=== PATIENT | female | born 2000 | race Caucasian/White ===

== ENCOUNTER → 2019-10-15 18:14 | Observation (INO) | END | disposition home or self-care (01) | LOC: 1NENULAB | PROVIDERS: ADMIT Student in an Organized Health Care Education/Training Program; ATTEND Student in an Organized Health Care Education/Training Program ==

== ENCOUNTER → 2019-10-23 00:53 | Observation (INO) ==
[2019-10-23 00:02] LABS: Bilirubin,Urine Negative (Negative); Blood,Urine Negative (Negative); Clarity,Urine Clear (Clear); Color,Urine Colorless (Yellow); Glucose,Urine (UA) Normal (Normal); Ketones,Urine Negative (Negative); Leukocyte Esterase,Urine Negative (Negative); Nitrite,Urine Negative (Negative); Protein,Urine Negative (Neg-Trace); Specific Gravity,Urine 1.006 (1.010-1.025); Urobilinogen,Urine Normal (Normal)
== END | disposition home or self-care (01) ==
LOC: 1NENULAB
PROVIDERS: ADMIT Obstetrics & Gynecology; ATTEND Obstetrics & Gynecology

== ENCOUNTER 2019-11-09 18:00 | Inpatient (IN) ==
[2019-11-09] MEDS ORDERED: miSOPROStoL 25 MCG TABLET VG PRN ×2 (18:19→18:22)
[2019-11-09] MEDS ORDERED: Lidocaine 1% 20 ML MDV INFILT PRN (18:23)
[2019-11-09] MEDS ORDERED: *HR* FentaNYL (PF) 100 MCG/2 ML VIAL IVP PRN (18:23)
[2019-11-09] MEDS ORDERED: Metoclopramide 10 MG/2 ML VIAL IVP PRN (18:23)
[2019-11-09] MEDS ORDERED: Naloxone 0.4 MG/ML INJ IVP PRN (18:23)
[2019-11-09] MEDS ORDERED: Oxytocin 20 units/ LR 1000 mL 20 UNIT/1,000 ML BAG IVC SCH ×2 (18:30)
[2019-11-09] MEDS ORDERED: Ringers Solution, Lactated 1,000 ML IVC SCH (18:30)
[2019-11-09 19:15] LABS: Basophils % 0.4 %; Eosinophils # 0.1 K/mcL (0.0-0.6); Eosinophils % 0.9 %; Hematocrit 33.3 % (35.3-44.9); Hemoglobin 10.8 g/dL (11.5-15.4); Immature Granulocytes % 0.6 % (0-4); Lymphocytes # 2.2 K/mcL (0.6-4.6); Lymphocytes % 26.8 %; Mean Corpuscular HGB Conc 32.4 g/dL (31.6-35.5); Mean Corpuscular Hemoglobin 26.9 pg (28.0-33.3); Mean Platelet Volume 12.6 fL (9.4-12.4); Monocytes # 0.6 K/mcL (0.0-1.3); Monocytes % 6.8 %; Neutrophils # 5.3 K/mcL (1.6-8.9); Platelet Count 163 K/mcL (140-400); Red Blood Count 4.01 M/mcL (3.82-4.97); Red Cell Distribution Width 14.6 % (11.5-14.5); Segmented Neutrophils % 64.5 %; White Blood Count 8.1 K/mcL (4.3-11.1)
[2019-11-09 19:21] LABS: Amphetamine Screen,Urine Negative ng/mL (Cutoff=1000); Barbiturate Screen,Urine Negative ng/mL (Cutoff=200); Benzodiazepines Screen,Urine Negative ng/mL (Cutoff=200); Cannabinoid Screen,Urine Negative ng/mL (Cutoff = 50); Cocaine Screen,Urine Negative ng/mL (Cutoff= 300); Opiate Screen,Urine Negative ng/mL (Cutoff=300); Phencyclidine Screen,Urine Negative ng/mL (Cutoff=25)
[2019-11-09] MEDS ORDERED: *HR* FentaNYL (PF) 100 MCG/2 ML VIAL EP ONE (20:38)
[2019-11-09] MEDS ORDERED: Bupivacaine-MPF 0.25% 10 ML VIAL EP ONE (20:38)
[2019-11-09] MEDS ORDERED: EPHEDrine 50 MG/ML VIAL IVP PRN (20:38)
[2019-11-09] MEDS ORDERED: Bupivacaine-MPF 0.25% 10 ML VIAL ONE (20:44)
[2019-11-09] MEDS ORDERED: *HR* FentaNYL (PF) 100 MCG/2 ML VIAL ONE (20:44)
[2019-11-10] MEDS ORDERED: Oxytocin 20 units/ LR 1000 mL 20 UNIT/1,000 ML BAG IVC ONE (00:47)
[2019-11-10] MEDS ORDERED: Oxytocin 20 units/ LR 1000 mL 20 UNIT/1,000 ML BAG IVC SCH (01:00)
[2019-11-10] MEDS: Famotidine 20 MG/2 ML VIAL IVP PRN (01:11)
[2019-11-10 06:44] LABS: Alanine Aminotransferase 7 Units/L (7-52); Aspartate Amino Transferase 12 Units/L (13-39); BUN/Creatinine Ratio 13 (6-26); Blood Urea Nitrogen 6 mg/dL (6-20); Lactate Dehydrogenase 123 Units/L (140-271); eGFR For African Americans > 60; eGFR For Non-African Americans > 60
[2019-11-10 07:28] LABS: Creatinine,Urine 71 mg/dL; Protein/Creatinine Ratio,Urine 0.27 mg/mg (0.00-0.20)
[2019-11-10] MEDS ORDERED: *HR* Phenylephrine 10 MG/ML VIAL ONE (08:15)
[2019-11-10] MEDS: Epidural Premix (fent/bupiv) 110 ML EP SCH ×2 (13:48→20:21)
[2019-11-10] MEDS ORDERED: 0.9 % Sodium Chloride 1,000 ML ONE (21:46)
[2019-11-11] MEDS ORDERED: Ropivacaine/PF 0.2% 20 ML VIAL ONE (00:59)
[2019-11-11] MEDS ORDERED: *HR* Ropivacaine/PF 0.5% 20 ML VIAL ONE (00:59)
[2019-11-11] MEDS ORDERED: SODIUM CHLORIDE 0.9% IVPB ONE (01:49)
[2019-11-11] MEDS ORDERED: GENTAMICIN IVPB ONE (01:49)
[2019-11-11] MEDS ORDERED: 0.9 % Sodium Chloride 1,000 ML ONE (02:09)
[2019-11-11] MEDS ORDERED: 0.9 % Sodium Chloride 1,000 ML IVC SCH (02:45)
[2019-11-11] MEDS ORDERED: Oxytocin 20 UNIT in 0.9 % Sodium Chloride 1,000 ML IVC SCH (02:45)
[2019-11-11] MEDS ORDERED: Ampicillin 2 GM in 0.9 % Sodium Chloride Mini Bag 100 ML IVPB SCH ×2 (03:00→12:00)
[2019-11-11] MEDS ORDERED: Gentamicin 80 MG in 0.9 % Sodium Chloride 100 ML IVPB SCH ×2 (03:00→19:00)
[2019-11-11] MEDS: Epidural Premix (fent/bupiv) 110 ML EP SCH (04:41)
[2019-11-11] MEDS ORDERED: Famotidine 20 MG/2 ML VIAL ONE (07:01)
[2019-11-11] MEDS: Famotidine 20 MG/2 ML VIAL IVP PRN (07:05)
[2019-11-11] MEDS ORDERED: CeFAZolin 2,000 MG/50 ML BAG IVPB ONE (07:08)
[2019-11-11] MEDS ORDERED: Azithromycin 500 MG in 0.9 % Sodium Chloride 250 ML IVPB ONE (07:10)
[2019-11-11] MEDS ORDERED: Famotidine 20 MG/2 ML VIAL IVP PRN (07:10)
[2019-11-11] MEDS ORDERED: Naloxone 0.4 MG/ML INJ IVP PRN (07:10)
[2019-11-11] MEDS ORDERED: Metoclopramide 10 MG/2 ML VIAL IVP PRN ×2 (07:10→11:13)
[2019-11-11] MEDS ORDERED: *HR* Morphine Sulfate/PF 10 MG/10 ML AMPUL ONE (07:12)
[2019-11-11] MEDS ORDERED: *HR* Oxytocin 10 UNIT/ML VIAL IM ONE ×3 (07:12→08:30)
[2019-11-11] MEDS ORDERED: Chloroprocaine/PF 20 ML VIAL INFILT ONE ×2 (07:12→08:03)
[2019-11-11] MEDS ORDERED: *HR* Propofol 200 MG/20 ML VIAL IVP ONE (07:34)
[2019-11-11] MEDS ORDERED: *HR* FentaNYL (PF) 250 MCG/5 ML VIAL ONE (07:57)
[2019-11-11] MEDS ORDERED: Acetaminophen IV 1,000 MG/100 ML INFUS..BTL IVPB ONE (08:13)
[2019-11-11] MEDS ORDERED: Ondansetron 4 MG/2 ML VIAL IVP PRN ×2 (08:13→11:13)
[2019-11-11] MEDS ORDERED: *HR* HYDROmorphone PF 0.5 MG/0.5 ML SYRINGE IVP PRN (08:13)
[2019-11-11] MEDS ORDERED: Dexamethasone 4 MG/ML VIAL ONE (08:16)
[2019-11-11] MEDS ORDERED: Ondansetron 4 MG/2 ML VIAL ONE (08:16)
[2019-11-11] MEDS ORDERED: Ringers Solution, Lactated 1,000 ML ONE (08:30)
[2019-11-11] MEDS ORDERED: Ketorolac 30 MG/ML VIAL ONE (08:36)
[2019-11-11] MEDS ORDERED: Sennosides 8.6 MG TABLET PO PRN (11:13)
[2019-11-11] MEDS ORDERED: Rho Immune Globulin 1,500 UNIT SYRINGE IM ONE (11:13)
[2019-11-11] MEDS ORDERED: Measles/Mumps/Rubella Vacc 0.5 ML VIAL SQ ONE (11:13)
[2019-11-11] MEDS ORDERED: *HR* OxyCODONE/APAP 5/325 TABLET PO PRN (11:13)
[2019-11-11] MEDS: Acetaminophen 325 MG TABLET PO PRN (12:37)
[2019-11-11] MEDS: Ampicillin 2 GM in 0.9 % Sodium Chloride Mini Bag 100 ML IVPB SCH ×2 (12:45→18:18)
[2019-11-11] MEDS: Simethicone 80 MG TAB.CHEW PO SCH ×3 (12:58→20:41)
[2019-11-11] MEDS: Prenatal Vit/FA 1 EACH TABLET PO SCH (12:59)
[2019-11-11] MEDS: Gentamicin 280 MG in 0.9 % Sodium Chloride 100 ML IVPB SCH (13:40)
[2019-11-11] MEDS: Ketorolac 30 MG/ML VIAL IVP SCH ×2 (15:09→20:41)
[2019-11-11] MEDS: Oxytocin 20 units/ LR 1000 mL 20 UNIT/1,000 ML BAG IVC SCH (22:15)
[2019-11-12] MEDS: Ampicillin 2 GM in 0.9 % Sodium Chloride Mini Bag 100 ML IVPB SCH ×3 (00:31→12:10)
[2019-11-12] MEDS: Ketorolac 30 MG/ML VIAL IVP SCH ×2 (02:29→08:31)
[2019-11-12 04:20] LABS: Basophils % 0.2 %; Eosinophils % 0.3 %; Hematocrit 28.4 % (35.3-44.9); Immature Granulocytes % 0.7 % (0-4); Lymphocytes # 1.8 K/mcL (0.6-4.6); Lymphocytes % 16.7 %; Mean Corpuscular HGB Conc 30.6 g/dL (31.6-35.5); Mean Corpuscular Hemoglobin 26.5 pg (28.0-33.3); Mean Corpuscular Volume 86.6 fL (83.0-100.0); Mean Platelet Volume 12.5 fL (9.4-12.4); Monocytes # 0.6 K/mcL (0.0-1.3); Monocytes % 5.2 %; Neutrophils # 8.3 K/mcL (1.6-8.9); Platelet Count 136 K/mcL (140-400); Red Blood Count 3.28 M/mcL (3.82-4.97); Red Cell Distribution Width 15.3 % (11.5-14.5); Segmented Neutrophils % 76.9 %; White Blood Count 10.8 K/mcL (4.3-11.1)
[2019-11-12 04:25] LABS: Hemoglobin 8.7 g/dL (11.5-15.4)
[2019-11-12] MEDS: Oxytocin 20 units/ LR 1000 mL 20 UNIT/1,000 ML BAG IVC SCH (06:22)
[2019-11-12] MEDS: Prenatal Vit/FA 1 EACH TABLET PO SCH (08:32)
[2019-11-12] MEDS: Simethicone 80 MG TAB.CHEW PO SCH ×3 (08:32→20:25)
[2019-11-12] MEDS: Acetaminophen 325 MG TABLET PO PRN ×2 (10:02→17:05)
[2019-11-12] MEDS: Gentamicin 280 MG in 0.9 % Sodium Chloride 100 ML IVPB SCH (12:58)
[2019-11-12] MEDS: cephALEXin 500 MG CAPSULE PO SCH ×2 (17:04→20:25)
[2019-11-12] MEDS: metroNIDAZOLE 500 MG TABLET PO SCH ×2 (17:04→20:25)
[2019-11-13] MEDS: Acetaminophen 325 MG TABLET PO PRN ×2 (00:26→07:55)
[2019-11-13] MEDS: Simethicone 80 MG TAB.CHEW PO SCH (07:54)
[2019-11-13] MEDS: Prenatal Vit/FA 1 EACH TABLET PO SCH (07:54)
[2019-11-13] MEDS: cephALEXin 500 MG CAPSULE PO SCH (07:55)
[2019-11-13 08:01] VITALS: BP 129/91
[2019-11-13] MEDS: metroNIDAZOLE 500 MG TABLET PO SCH (09:09)
== END 2019-11-13 13:50 | disposition home or self-care (01) | DRG 540 ==
LOC: 1NENULAB 18:01 → 1NENUOBS 11-11 11:13
PROVIDERS: ADMIT Student in an Organized Health Care Education/Training Program; ATTEND Student in an Organized Health Care Education/Training Program

== ENCOUNTER → 2021-09-03 21:48 | Observation (INO) ==
[2021-09-03 21:15] LABS: Bilirubin,Urine Negative (Negative); Blood,Urine Negative (Negative); Clarity,Urine Clear (Clear); Color,Urine Light-Yellow (Yellow); Glucose,Urine (UA) Normal (Normal); Ketones,Urine Negative (Negative); Leukocyte Esterase,Urine Negative (Negative); Nitrite,Urine Negative (Negative); Protein,Urine Negative (Neg-Trace); Specific Gravity,Urine 1.017 (1.010-1.025); Urobilinogen,Urine Normal (Normal)
== END | disposition home or self-care (01) ==
LOC: 1NENULAB
PROVIDERS: ADMIT Advanced Practice Midwife; ATTEND Advanced Practice Midwife

== ENCOUNTER → 2021-09-21 15:55 | Observation (INO) ==
[2021-09-21 15:43] LABS: Amorphous Sediment,Urine Few per hpf (None-Few); Bacteria,Urine Few per hpf (None-Few); Bilirubin,Urine Negative (Negative); Blood,Urine Negative (Negative); Clarity,Urine Turbid (Clear); Color,Urine Light-Yellow (Yellow); Glucose,Urine (UA) Normal (Normal); Ketones,Urine Negative (Negative); Leukocyte Esterase,Urine Negative (Negative); Mucus,Urine Few per lpf (None-Few); Nitrite,Urine Negative (Negative); Protein,Urine Trace mg/dL (Neg-Trace); RBC,Urine 0-3 per hpf (0-3); Specific Gravity,Urine 1.014 (1.010-1.025); Squamous Epithelial Cell,Urine Few per hpf (None-Few); Urobilinogen,Urine Normal (Normal); WBC,Urine 0-3 per hpf (0-3)
== END | disposition home or self-care (01) ==
LOC: 1NENULAB
PROVIDERS: ADMIT Registered Nurse; ATTEND Registered Nurse

== ENCOUNTER → 2021-11-04 22:10 | Observation (INO) ==
[~2021-11-04 22:10] MED LIST: Ringers Solution, Lactated 1,000 ML IVC ONE
== END | disposition home or self-care (01) ==
LOC: 1NENULAB
PROVIDERS: ADMIT Student in an Organized Health Care Education/Training Program; ATTEND Student in an Organized Health Care Education/Training Program

== ENCOUNTER 2021-11-23 03:22 | Inpatient (IN) ==
[2021-11-23] MEDS ORDERED: *HR* FentaNYL (PF) 100 MCG/2 ML VIAL IVP PRN (04:18)
[2021-11-23] MEDS ORDERED: Famotidine 20 MG/2 ML VIAL IVP PRN (04:18)
[2021-11-23] MEDS ORDERED: Naloxone 0.4 MG/ML INJ IVP PRN (04:18)
[2021-11-23] MEDS ORDERED: *HR* Nalbuphine 10 MG/ML AMPUL IV PRN (04:18)
[2021-11-23] MEDS ORDERED: Metoclopramide 10 MG/2 ML VIAL IVP PRN (04:18)
[2021-11-23] MEDS ORDERED: Azithromycin 500 MG in 0.9 % Sodium Chloride 250 ML IVPB PRN (04:18)
[2021-11-23] MEDS ORDERED: Ondansetron 4 MG/2 ML VIAL IVP PRN (04:18)
[2021-11-23] MEDS ORDERED: Ringers Solution, Lactated 1,000 ML IVC SCH (04:30)
[2021-11-23] MEDS ORDERED: Oxytocin 30 UNIT/503 ML BAG IVC SCH (04:30)
[2021-11-23 05:06] LABS: Basophils % 0.4 %; Eosinophils # 0.2 K/mcL (0.0-0.6); Eosinophils % 1.9 %; Hematocrit 35.2 % (35.3-44.9); Hemoglobin 11.2 g/dL (11.5-15.4); Immature Granulocytes % 0.4 % (0-4); Lymphocytes # 3.3 K/mcL (0.6-4.6); Lymphocytes % 34.5 %; Mean Corpuscular HGB Conc 31.8 g/dL (31.6-35.5); Mean Corpuscular Hemoglobin 26.5 pg (28.0-33.3); Mean Corpuscular Volume 83.4 fL (83.0-100.0); Mean Platelet Volume 11.5 fL (9.4-12.4); Monocytes # 0.6 K/mcL (0.0-1.3); Monocytes % 5.9 %; Neutrophils # 5.4 K/mcL (1.6-8.9); Platelet Count 223 K/mcL (140-400); Red Blood Count 4.22 M/mcL (3.82-4.97); Red Cell Distribution Width 14.8 % (11.5-14.5); Segmented Neutrophils % 56.9 %; White Blood Count 9.5 K/mcL (4.3-11.1)
[2021-11-23 05:30] LABS: Amphetamine Screen,Urine Negative ng/mL (Cutoff=1000); Barbiturate Screen,Urine Negative ng/mL (Cutoff=200); Benzodiazepines Screen,Urine Negative ng/mL (Cutoff=200); Cannabinoid Screen,Urine Negative ng/mL (Cutoff = 50); Cocaine Screen,Urine Negative ng/mL (Cutoff= 300); Opiate Screen,Urine Negative ng/mL (Cutoff=300); Phencyclidine Screen,Urine Negative ng/mL (Cutoff=25)
[2021-11-23] MEDS ORDERED: Heparin 1,000 UNITS/500 mL 0 ML ONE (06:06)
[2021-11-23] MEDS ORDERED: EPHEDrine 50 MG/ML VIAL IVP PRN (06:57)
[2021-11-23] MEDS ORDERED: Epidural Premix (fent/bupiv) 110 ML EP SCH (07:00)
[2021-11-23] MEDS ORDERED: *HR* FentaNYL (PF) 100 MCG/2 ML VIAL EP ONE (07:45)
[2021-11-23] MEDS ORDERED: Ropivacaine/PF 0.2% 20 ML VIAL EP ONE (07:45)
[2021-11-23] MEDS ORDERED: Mag Hydrox/Al Hydrox/Simeth 30 ML UDC PO PRN (08:45)
[2021-11-23] MEDS ORDERED: *HR* FentaNYL (PF) 100 MCG/2 ML VIAL ONE ×2 (14:36→20:02)
[2021-11-23] MEDS ORDERED: *HR* Ropivacaine/PF 0.5% 20 ML VIAL ONE (20:02)
[2021-11-23] MEDS ORDERED: Lidocaine/EPI 1:200k 2% PF 20 ML VIAL ONE (23:40)
[2021-11-24] MEDS ORDERED: Ondansetron 4 MG/2 ML VIAL ONE (00:06)
[2021-11-24] MEDS ORDERED: EPHEDrine 50 MG/ML VIAL ONE (00:07)
[2021-11-24] MEDS ORDERED: Ketorolac 30 MG/ML VIAL ONE (00:07)
[2021-11-24] MEDS ORDERED: Acetaminophen IV 1,000 MG/100 ML BAG IVPB ONE (00:08)
[2021-11-24] MEDS ORDERED: Ringers Solution, Lactated 1,000 ML ONE (00:26)
[2021-11-24] MEDS ORDERED: *HR* Morphine Sulfate/PF 10 MG/10 ML AMPUL ONE (00:29)
[2021-11-24] MEDS ORDERED: Promethazine 6.25 MG in Water for inj. (sterile) 20 ML IVPB PRN (01:25)
[2021-11-24] MEDS ORDERED: *HR* HYDROmorphone PF 0.5 MG/0.5 ML SYRINGE IVP PRN (01:25)
[2021-11-24] MEDS ORDERED: Ondansetron 4 MG/2 ML VIAL IVP PRN ×2 (01:25→03:18)
[2021-11-24] MEDS ORDERED: Oxytocin 30 UNIT/503 ML BAG IVC SCH (03:18)
[2021-11-24] MEDS ORDERED: Simethicone 80 MG TAB.CHEW PO PRN (03:18)
[2021-11-24] MEDS ORDERED: Metoclopramide 10 MG/2 ML VIAL IVP PRN (03:18)
[2021-11-24] MEDS ORDERED: Naloxone 0.4 MG/ML INJ IVP PRN (03:18)
[2021-11-24] MEDS ORDERED: Ringers Solution, Lactated 1,000 ML IVC SCH (03:18)
[2021-11-24] MEDS ORDERED: Rho Immune Globulin 1,500 UNIT SYRINGE IM ONE ×2 (03:18→12:45)
[2021-11-24] MEDS: Acetaminophen 325 MG TABLET PO SCH ×3 (03:55→17:07)
[2021-11-24] MEDS: Ibuprofen 600 MG TABLET PO SCH ×2 (03:56→21:32)
[2021-11-24] MEDS ORDERED: *HR* OxyCODONE Immed Rel 5 MG TABLET PO PRN (04:00)
[2021-11-24 05:12] LABS: Basophils % 0.1 %; Hematocrit 33.4 % (35.3-44.9); Hemoglobin 10.6 g/dL (11.5-15.4); Immature Granulocytes % 0.6 % (0-4); Lymphocytes # 0.9 K/mcL (0.6-4.6); Lymphocytes % 5.4 %; Mean Corpuscular HGB Conc 31.7 g/dL (31.6-35.5); Mean Corpuscular Hemoglobin 26.6 pg (28.0-33.3); Mean Corpuscular Volume 83.9 fL (83.0-100.0); Mean Platelet Volume 11.5 fL (9.4-12.4); Monocytes # 0.7 K/mcL (0.0-1.3); Monocytes % 4.4 %; Neutrophils # 14.3 K/mcL (1.6-8.9); Platelet Count 210 K/mcL (140-400); Red Blood Count 3.98 M/mcL (3.82-4.97); Red Cell Distribution Width 14.7 % (11.5-14.5); Segmented Neutrophils % 89.5 %
[2021-11-24] MEDS: Prenatal Vit/FA 1 EACH TABLET PO SCH (08:00)
[2021-11-25] MEDS: Ibuprofen 600 MG TABLET PO SCH ×2 (09:14→19:34)
[2021-11-25] MEDS: Prenatal Vit/FA 1 EACH TABLET PO SCH (09:15)
[2021-11-25] MEDS: Acetaminophen 325 MG TABLET PO SCH ×3 (09:16→19:34)
[2021-11-26] MEDS: Ibuprofen 600 MG TABLET PO SCH ×3 (03:28→10:16)
[2021-11-26] MEDS: Acetaminophen 325 MG TABLET PO SCH ×3 (03:28→10:16)
[2021-11-26 07:21] VITALS: BP 101/62; PULSE 55; TEMP 98.1; O2SAT 97
[2021-11-26] MEDS: Prenatal Vit/FA 1 EACH TABLET PO SCH (07:45)
== END 2021-11-26 11:11 | disposition home or self-care (01) | DRG 539 ==
LOC: 1NENULAB 03:22 → 1NENUOBS 11-24 03:19
PROVIDERS: ADMIT Obstetrics & Gynecology; ATTEND Obstetrics & Gynecology